=== PATIENT | female | born 1995 | race Caucasian/White ===

== ENCOUNTER 2018-07-29 22:49 | Emergency (ER) | payer OTHER ==
[~2018-07-29] VITALS: Ht 157.5 cm; Wt 85.7 kg
[~2018-07-29 22:49] MED LIST: AMBIEN5 MG PO; CYCLOBENZAPRINE5 MG PO; KLONOPIN0.5 MG PO; LEVAQUIN500 MG PO; LEXAPRO10 MG PO; PEPCID20 MG PO; ULTRAM 50MG50 MG PO; VALIUM5 MG PO; ZOFRAN ODT4 MG PO
--- OUTSIDE RECORDS SUMMARY | 2018-07-29 22:53 | XMS REPORT | Continuity of Care Document ---
Demographics Preferred Language Unknown Marital Status Unknown Uatsdin Affiliation Unknown Race Unknown Ethnic Group Unknown Author Author Amadeo ninoska [facility] Interface Address Unknown Phone Unavailable Problems Problem Status Onset Date Classification Date Reported Comments Source DOCTORS ORDER Active 12/12/2012 [facility] Fibromyalgia Resolved Problem 12/14/2012 [facility] Scoliosis Resolved Problem 12/14/2012 [facility] Medications Medication Details Route Status Patient Instructions Ordering Provider Order Date Source morphine Sulfate 2 mg, Route: IVP, ONCE, Dosing Weight 66.364, kg, Start date: 12/12/12 19:06:00, Stop date: 12/12/12 19:06:00 IVP No Longer Active [place] 12/13/2012 [facility] Allergies, Adverse Reactions, Alerts Substance Category Reaction Severity Reaction type Status Date Reported Comments Source Augmentin drug allergy Allergy Active [facility] Immunizations Immunization Date Given Site Status Last Updated Comments Source Results Order Name Results Value Reference Range Date Interpretation Comments Source CHEMISTRY eGFR 126 mL/min/1.73m2 12/12/2012 NA 1Result Comment: The eGFR is calculated using the CKD-EPI formula. In most young, healthy individuals the eGFR will be >90 mL/min/1.73m2. The eGFR declines with age. An eGFR of 60-89 may be normal in some populations, particularly the elderly, for whom the CKD-EPI formula has not been extensively validated. Use of the eGFR is not recommended in the following populations: Individuals with unstable creatinine concentrations, including patients and those with serious co-morbid conditions. Patients with extremes in muscle mass or diet. The data above are obtained from the National Kidney Disease Education Program (NKDEP) which additionally recommends that when the eGFR is used in patients with extremes of body mass index for purposes of drug dosing, the eGFR should be multiplied by the estimated BMI. [facility] CHEMISTRY Alk Phos 146 unit/L 39 - 136 12/12/2012 HI [facility] CHEMISTRY ALT 17 unit/L 0 - 65 12/12/2012 Normal [facility] CHEMISTRY Total Protein 7.8 g/dL 6.4 - 8.4 12/12/2012 Normal [facility] CHEMISTRY Albumin Lvl 3.0 g/dL 3.5 - 5.0 12/12/2012 LOW [facility] CHEMISTRY CO2 27 meq/L 24 - 32 12/12/2012 Normal [facility] CHEMISTRY Calcium Lvl 8.4 mg/dL 8.5 - 10.5 12/12/2012 LOW [facility] CHEMISTRY Creatinine Lvl 0.7 mg/dL 0.5 - 1.4 12/12/2012 Normal [facility] CHEMISTRY Glucose Lvl 71 mg/dL 70 - 99 12/12/2012 Normal 2Interpretive Data: Adult reference range values reflect the clinical guidelines of the [place] [employer]. [facility] CHEMISTRY BUN 8 mg/dL 7 - 22 12/12/2012 Normal [facility] CHEMISTRY Bili Total 0.2 mg/dL 0.2 - 1.3 12/12/2012 Normal [facility] CHEMISTRY AST 9 unit/L 0 - 37 12/12/2012 Normal [facility] CHEMISTRY Chloride Lvl 100 meq/L 95 - 109 12/12/2012 Normal [facility] CHEMISTRY Potassium Lvl 3.6 meq/L 3.5 - 5.1 12/12/2012 Normal [facility] CHEMISTRY Sodium Lvl 138 meq/L 135 - 145 12/12/2012 Normal [facility] CHEMISTRY AGAP 14.6 meq/L 10.0 - 20.0 12/12/2012 Normal [facility] CHEMISTRY A/G Ratio 0.6 0.7 - 1.6 12/12/2012 LOW [facility] CHEMISTRY Globulin 4.8 g/dL 2.0 - 4.0 12/12/2012 HI [facility] CHEMISTRY B/C Ratio 11 6 - 25 12/12/2012 Normal [facility] CHEMISTRY S Preg Negative *NA* (12/12/2012 18:12:00) Negative 12/12/2012 NA [facility] HEMATOLOGY Hypochrom Slight (12/12/2012 18:12:00) None Seen 12/12/2012 Normal [facility] HEMATOLOGY Basophils # 0.1 K/CMM 0.0 - 0.2 12/12/2012 Normal [facility] HEMATOLOGY Microcyte 1+ *ABN* (12/12/2012 18:12:00) None Seen 12/12/2012 ABN [facility] HEMATOLOGY Eosinophils # 0.1 K/CMM 0.0 - 0.5 12/12/2012 Normal [facility] HEMATOLOGY Monocytes # 1.1 K/CMM 0.0 - 0.8 12/12/2012 [facility] HEMATOLOGY Lymphocytes # 3.4 K/CMM 1.0 - 5.5 12/12/2012 Normal [facility] HEMATOLOGY Plt Morph Normal (12/12/2012 18:12:00) 12/12/2012 Normal [facility] HEMATOLOGY Segs 64.8 % 45.0 - 75.0 12/12/2012 Normal [facility] Segs-Bands # 8.6 K/CMM 1.5 - 8.1 12/12/2012 [facility] HEMATOLOGY Basophils 0.5 % 0.0 - 1.0 12/12/2012 Normal [facility] HEMATOLOGY Lymphocytes 25.2 % 20.0 - 40.0 12/12/2012 Normal [facility] HEMATOLOGY Monocytes 8.5 % 2.0 - 12.0 12/12/2012 Normal [facility] HEMATOLOGY Eosinophils 1.0 % 0.0 - 4.0 12/12/2012 Normal [facility] WBC 13.3 K/CMM 3.7 - 10.4 12/12/2012 [facility] MCV 69.1 fL 81.0 - 99.0 12/12/2012 [facility] MCH 21.6 pg 27.0 - 31.0 12/12/2012 [facility] RBC 4.32 M/CMM 4.20 - 5.40 12/12/2012 Normal [facility] Hgb 9.3 g/dL 12.0 - 16.0 12/12/2012 [facility] Hct 29.8 % 36.0 - 48.0 12/12/2012 [facility] Platelet 535 K/CMM 133 - 450 12/12/2012 [facility] MPV 5.9 fL 7.4 - 10.4 12/12/2012 [facility] MCHC 31.2 g/dL 32.0 - 36.0 12/12/2012 [facility] RDW 16.7 % 11.5 - 14.5 12/12/2012 [facility] Spine lumbar wo contrast CT Spine lumbar wo contrast CT EXAM: CT LUMBAR SPINE WITHOUT CONTRAST. CLINICAL INFORMATION: Backache. COMPARISON: None. TECHNIQUE: Axial images obtained through the lumbar spine with sagittal and coronal reformations. No IV or intrathecal contrast given. The lack of IV contrast lowers the sensitivity for diagnostic evaluation. FINDINGS: 1. Dextroscoliosis with extensive posterior postoperative change and spinal fusion are present from the upper thoracic spine to the lower lumbar spine causing marked streak artifact limiting evaluation. Nonspecific heterogeneous soft tissue attenuation are present within the posterior hardware near the thoracolumbar junction and upper lumbar spine may be postoperative granulation tissue. Infection is felt less likely but cannot be completely excluded due to artifact. 2. No acute compression fracture. 3. Diffuse osteopenia. SL: 14 12/12/2012 - - Read by: Doroteo Goldstein Dictated Date/time: 12/12/12 20:07 Electronically Signed by: Doroteo Goldstein MD 12/12/12 20:10 FINAL REPORT [facility] thoracic wo contrast CT Spine thoracic wo contrast CT EXAM: CT THORACIC SPINE WITHOUT CONTRAST. CLINICAL INFORMATION: Back pain. COMPARISON: None. TECHNIQUE: Axial images obtained through the lumbar spine with sagittal and coronal reformations. No IV or intrathecal contrast given. The lack of IV contrast lowers the sensitivity for diagnostic evaluation. FINDINGS: 1. Limited study as above. Moderate dextroscoliosis and posterior spinal fusion from about T2 to about L4 severely degrading image quality. Extensive anterior and posterior paraspinous soft tissue attenuation is present within the upper thoracic spine from about T2 to T5 likely representing mass or spinous and paraspinous infection incompletely evaluated due to the marked streak artifact. Heterogeneous sclerosis of the T2 vertebral body with inferior endplate deformity. 2. A 3.5 cm indeterminate heterogeneous posterior soft tissue mass or abscess is present at about the T4-T5 level. Neurosurgical consultation recommended for further evaluation. Further work-up with attempt MRI thoracic spine with contrast and/or dedicated CT thoracic myelogram recommended for further evaluation. Critical findings were called to Dr. Meyers on 12/12/2012 at 08:06 p.m. SL: 12/12/2012 - - Read by: Doroteo Goldstein Dictated Date/time: 12/12/12 19:51 Electronically Signed by: Doroteo Goldstein MD 12/12/12 20:06 FINAL REPORT [facility] cervical wo contrast CT Spine cervical wo contrast CT EXAM: CT CERVICAL SPINE WITHOUT CONTRAST. CLINICAL INFORMATION: Backache. COMPARISON: [None] TECHNIQUE: Axial views of the cervical spine with sagittal and coronal reformations. FINDINGS: Normal alignment of the cervical spine without definite acute fracture, subluxation or dislocation seen. The disc spaces are maintained. Precervical soft tissues within normal limits. Anterior paraspinous mass is present in the region of the postoperative fusion incompletely evaluated. Please refer to CT thoracic spine report for complete details. IMPRESSION: No definite CT evidence of acute cervical osseous injury detected. Anterior and posterior paraspinous attenuation/mass in the region of the postoperative fusion incompletely evaluated. Please refer to CT thoracic spine report for complete details. SL: 14 12/12/2012 - - Read by: Doroteo Goldstein Dictated Date/time: 12/12/12 19:45 Electronically Signed by: Doroteo Goldstein MD 12/12/12 20:10 FINAL REPORT [facility] Vital Signs Vital Sign Value Date Comments Source Weight 66.364 12/12/2012 [facility] Height 157.48 cm 12/12/2012 [facility] Encounters Location Location Details Encounter Type Encounter Number Reason For Visit Attending Provider ADM Date DC Date Status Source [facility] Emergency [id number] ERICA YOUNGBLOOD 12/12/2012 12/12/2012 Active [facility] Procedures Procedure Code Date Perfomer Comments Source
--- OUTSIDE RECORDS SUMMARY | 2018-07-29 22:53 | XMS REPORT | CCD ---
Author Author Auto Generated Organization [facility] Address Unknown Phone Unavailable Care Team Providers Care Restaurant Area Director Name Role Phone Christophe Villan[place]va [place] CP Allergies, Adverse Reactions, Alerts Substance Reaction Status Augmentin Active Problem List Condition Effective Dates Status Fibromyalgia Resolved Scoliosis Resolved Medications Medication Instructions Start Date End Date Status morphine Sulfate 2 mg, Route: IVP, ONCE, Dosing 12/12/2012 12/12/2012 Completed Weight 66.364, kg, Start date: 12/12/12 19:06:00, Stop date: 12/12/12 19:06:00 Vital Signs Most recent to oldest [Reference Range]: 1 Height 157.48 cm (12/12/2012 17:31:00) Weight 66.364 kg (12/12/2012 17:31:00) Results CHEMISTRY Most recent to oldest [Reference Range]: 1 Sodium Lvl [135-145 mEq/L] 138 mEq/L (12/12/2012 18:12:00) Potassium Lvl [3.5-5.1 mEq/L] 3.6 mEq/L (12/12/2012 18:12:00) Chloride Lvl [95-109 mEq/L] 100 mEq/L (12/12/2012 18:12:00) CO2 [24-32 mEq/L] 27 mEq/L (12/12/2012 18:12:00) AGAP [10.0-20.0 mEq/L] 14.6 mEq/L (12/12/2012 18:12:00) Creatinine Lvl [0.5-1.4 mg/dL] 0.7 mg/dL (12/12/2012 18:12:00) eGFR 126 mL/min/1.73m2 1 *NA* (12/12/2012 18:12:00) BUN [7-22 mg/dL] 8 mg/dL (12/12/2012 18:12:00) B/C Ratio [6-25] 11 (12/12/2012 18:12:00) Glucose Lvl [70-99 mg/dL] 71 mg/dL 2 (12/12/2012:12:00) Total Protein [6.4-8.4 g/dL] 7.8 g/dL (12/12/2012 18:12:00) Albumin Lvl [3.5-5.0 g/dL] 3.0 g/dL *LOW* (12/12/201212:00) Globulin [2.0-4.0 g/dL] 4.8 g/dL *HI* (12/12/2012:00) A/G Ratio [0.7-1.6] 0.6 *LOW* (12/12/201212:00) Calcium Lvl [8.5-10.5 mg/dL] 8.4 mg/dL *LOW* (12/12/2012:12:00) ALT [0-65 unit/L] 17 unit/L (12/12/2012:12:00) AST [0-37 unit/L] 9 unit/L (12/12/2012:12:00) Alk Phos [39-136 unit/L] 146 unit/L *HI* (12/12/201212:00) Bili Total [0.2-1.3 mg/dL] 0.2 mg/dL (12/12/2012:12:00) S Preg [Negative] Negative *NA* (12/12/2012:00) 1Result Comment: The eGFR is calculated using [...] from the National Kidney Disease Education Program ( NKDEP) which additionally recommends that when the eGFR is used in patients with extremes of body mass index for purposes of drug dosing, the eGFR should be mul tiplied by the estimated BMI. 2Interpretive Data: Adult reference range values reflect the clinical guidelines of the [place] [employer]. HEMATOLOGY Most recent to oldest [Reference Range]: 1 WBC [3.7-10.4 K/CMM] 13.3 K/CMM *HI* (12/12/2012 18:12:00) RBC [4.20-5.40 M/CMM] 4.32 M/CMM (12/12/2012:12:00) Hgb [12.0-16.0 g/dL] 9.3 g/dL *LOW* (12/12/2012) Hct [36.0-48.0 %] 29.8 % *LOW* (12/12/2012:12:00) MCV [81.0-99.0 fL] 69.1 fL *LOW* (12/12/2012:12:00) MCH [27.0-31.0 pg] 21.6 pg *LOW* (12/12/2012:12:00) MCHC [32.0-36.0 g/dL] 31.2 g/dL *LOW* (12/12/2012:12:00) RDW [11.5-14.5 %] 16.7 % *HI* (12/12/2012:12:00) Platelet [133-450 K/CMM] 535 K/CMM *HI* (12/12/2012:12:00) MPV [7.4-10.4 fL] 5.9 fL *LOW* (12/12/2012:12:00) Segs [45.0-75.0 %] 64.8 % (12/12/2012:12:00) Lymphocytes [20.0-40.0 %] 25.2 % (12/12/201212) Monocytes [2.0-12.0 %] 8.5 % (12/12/201212:00) Eosinophils [0.0-4.0 %] 1.0 % (12/12/2012:12:00) Basophils [0.0-1.0 %] 0.5 % (12/12/2012 18:12:00) Segs-Bands # [1.5-8.1 K/CMM] 8.6 K/CMM *HI* (12/12/2012 18:12:00) Lymphocytes # [1.0-5.5 K/CMM] 3.4 K/CMM (12/12/2012 18:12:00) Monocytes # [0.0-0.8 K/CMM] 1.1 K/CMM *HI* (12/12/2012 18:12:00) Eosinophils # [0.0-0.5 K/CMM] 0.1 K/CMM (12/12/2012 18:12:00) Basophils # [0.0-0.2 K/CMM] 0.1 K/CMM (12/12/2012 18:12:00) Hypochrom [None Seen] Slight (12/12/2012 18:12:00) Microcyte [None Seen] 1+ *ABN* (12/12/2012 18:12:00) Plt Morph Normal (12/12/2012 18:12:00)
== END 2018-07-29 23:20 | disposition left against medical advice (07) ==
LOC: FSED 22:49
DX: N89.8 Other specified noninflammatory disorders of vagina (principal); E28.2 Polycystic ovarian syndrome; M41.9 Scoliosis, unspecified; G47.00 Insomnia, unspecified